=== PATIENT | female | born 1965 | race Caucasian/White ===

== ENCOUNTER 2018-05-09 16:01 | Emergency (ER) | payer OTHER ==
[~2018-05-09] VITALS: Ht 172.7 cm; Wt 74.8 kg
[2018-05-09] MEDS ORDERED: OXYC10TA19 (16:07)
== END 2018-05-09 18:40 | disposition left against medical advice (07) ==
LOC: ER 16:01
DX: T15.02XA Foreign body in cornea, left eye, initial encounter (principal)
CPT/HCPCS: 99282